=== PATIENT | male | born 1980 | race Caucasian/White ===

== ENCOUNTER 2024-02-22 16:52 | Emergency (ER) | payer OTHER ==
[~2024-02-22] VITALS: Ht 193 cm; Wt 93.4 kg
[2024-02-22 17:00] VITALS: PULSE 84; RESP 16; TEMP 98.2; O2SAT 100
[2024-02-22] MEDS ORDERED: LIDOCAINE 1% W/EPINEPHRINE 20 ML VIAL INJ ONE (17:45)
[2024-02-22] MEDS ORDERED: KETOROLAC TROME10 MG PO (18:57)
== END 2024-02-22 18:56 | disposition home or self-care (01) ==
LOC: ER 17:01
DX: S01.01XA Laceration without foreign body of scalp, initial encounter (principal); V19.9XXA Pedal cyclist (driver) (passenger) injured in unspecified traffic accident, initial encounter; Y93.55 Activity, bike riding; Y92.488 Other paved roadways as the place of occurrence of the external cause
CPT/HCPCS: 70450; 99284